=== PATIENT | male | born 1965 | race Caucasian/White ===

== ENCOUNTER 2020-07-07 17:11 | Inpatient (IN) | payer BC, OTHER ==
[2020-07-07] MEDS ORDERED: Ondansetron PF 4 MG/2 ML Vial IVP PRN (17:12)
[2020-07-07] MEDS ORDERED: Acetaminophen 325 MG TAB PO PRN (17:12)
[2020-07-07] MEDS ORDERED: Nitroglycerin 0.4 MG TAB (25 Tab Bottle) SL PRN (17:12)
[2020-07-07 17:27] VITALS: BMI 45.9
[2020-07-07 18:04] LABS: #Eosinphils 0.1 10x3/uL (0.0-0.5); #Monocytes 0.8 10x3/uL (0.0-1.1); #Neutrophils 5.7 10x3/uL (1.5-8.4); %Basophils 0.3 % (0.0-2.0); %Eosinophils 0.9 % (0.0-6.0); %Lymphocytes 22.4 % (18.0-47.0); %Monocytes 9.3 % (0.0-10.0); %Neutrophils 66.4 % (40.0-75.0); Hemoglobin 14.5 g/dL (13.5-17.5); Mean Corpuscular HGB CONC 33.4 g/dL (32.0-36.0); Mean Corpuscular Hemoglobin 29.5 pg (27.0-33.0); Mean Corpuscular Volume 88.4 fl (81.2-95.1); Mean Platelet Volume 9.4 fl (7.4-10.4); Platelet Count 242 10x3/uL (150-450); RBC Distribution Width 12.7 % (11.5-14.5); Red Blood Cell (RBC) Count 4.91 10x6/uL (4.32-5.72); White Blood Cell (WBC) Count 8.6 10x3/uL (3.5-10.5)
[2020-07-07 18:15] LABS: Anion Gap 15 mmol/L (10-20); BUN (Urea Nitrogen) 12 mg/dL (8.4-25.7); Calc. Creatinine Clearance 180 mL/min (70-130); Calcium 9.4 mg/dL (7.8-10.44); Carbon Dioxide 22 mmol/L (22-29); Chloride 105 mmol/L (98-107); Glucose 94 mg/dL (70-105); Potassium 3.8 mmol/L (3.5-5.1); Sodium 138 mmol/L (136-145)
[2020-07-07 18:37] LABS: Troponin I 2.754 ng/mL (< 0.028)
[2020-07-07] MEDS: Famotidine 20 MG TAB PO SCH (20:48)
[2020-07-07] MEDS: Enoxaparin Sodium 80 MG/0.8 ML SYRINGE SC SCH ×2 (20:48)
[2020-07-07] MEDS: Montelukast Sodium 10 mg Tablet PO SCH (20:48)
[2020-07-07] MEDS: Cyclobenzaprine 10 MG TAB PO SCH (20:48)
[2020-07-07] MEDS: Nitroglycerin 2% Ointment 1 INCH/1 GM Packet TOP SCH (20:49)
[2020-07-07] MEDS: Pregabalin 75 MG CAP PO SCH (20:49)
[2020-07-07] MEDS: Atorvastatin Calcium 40 MG TAB PO SCH (20:49)
[2020-07-07 20:56] LABS: Troponin I 3.099 ng/mL (< 0.028)
[2020-07-08 06:12] LABS: #Eosinphils 0.1 10x3/uL (0.0-0.5); #Monocytes 0.9 10x3/uL (0.0-1.1); #Neutrophils 4.3 10x3/uL (1.5-8.4); %Basophils 0.3 % (0.0-2.0); %Eosinophils 1.4 % (0.0-6.0); %Lymphocytes 25.8 % (18.0-47.0); %Monocytes 12.7 % (0.0-10.0); %Neutrophils 59.5 % (40.0-75.0); Hemoglobin 13.9 g/dL (13.5-17.5); Mean Corpuscular HGB CONC 32.4 g/dL (32.0-36.0); Mean Corpuscular Hemoglobin 28.9 pg (27.0-33.0); Mean Corpuscular Volume 89.2 fl (81.2-95.1); Mean Platelet Volume 9.5 fl (7.4-10.4); Platelet Count 249 10x3/uL (150-450); Red Blood Cell (RBC) Count 4.81 10x6/uL (4.32-5.72); White Blood Cell (WBC) Count 7.3 10x3/uL (3.5-10.5)
[2020-07-08] MEDS: Nitroglycerin 2% Ointment 1 INCH/1 GM Packet TOP SCH ×2 (06:22→15:58)
[2020-07-08 06:23] LABS: Anion Gap 13 mmol/L (10-20); BUN (Urea Nitrogen) 12 mg/dL (8.4-25.7); Calc. Creatinine Clearance 160 mL/min (70-130); Calcium 9.2 mg/dL (7.8-10.44); Carbon Dioxide 28 mmol/L (22-29); Cardiac Risk 3.7 (Less than 4.5); Chloride 105 mmol/L (98-107); Cholesterol 115 mg/dl (< 200 Desired); Glucose 100 mg/dL (70-105); HDL Cholesterol 31 mg/dL (>60 Neg Risk); LDL Cholesterol, Calculated 61 mg/dL; Potassium 4.3 mmol/L (3.5-5.1); Sodium 142 mmol/L (136-145); Triglycerides 114 mg/dL (Less than 150)
[2020-07-08] MEDS: Cyclobenzaprine 10 MG TAB PO SCH ×2 (09:40→20:08)
[2020-07-08] MEDS: Famotidine 20 MG TAB PO SCH ×2 (09:40→20:08)
[2020-07-08] MEDS: Fish Oil 1,000 MG CAP PO SCH (09:41)
[2020-07-08] MEDS: Multivit, Therapeutic 1 TAB PO SCH (09:41)
[2020-07-08] MEDS: Fluticasone Propionate Nasal Spray 16 gm Bottle NASAL SCH (09:41)
[2020-07-08] MEDS: Aspirin 81 mg Enteric Coated Tablet PO SCH (09:41)
[2020-07-08] MEDS: Pregabalin 75 MG CAP PO SCH ×3 (09:41→20:07)
[2020-07-08 10:56] LABS: CKMB 22.3 ng/mL (0-6.6)
[2020-07-08 11:14] LABS: Hemoglobin A1c 5.8 % (4.0-6.0)
[2020-07-08] MEDS: Enoxaparin Sodium 80 MG/0.8 ML SYRINGE SC SCH ×5 (12:20→20:09)
[2020-07-08 14:08] LABS: SARS-CoV-2 PCR by NAA Not Detected (NotDetected)
[2020-07-08] MEDS: Atorvastatin Calcium 40 MG TAB PO SCH (20:08)
[2020-07-08] MEDS: Montelukast Sodium 10 mg Tablet PO SCH (20:09)
[2020-07-09] MEDS: Nitroglycerin 2% Ointment 1 INCH/1 GM Packet TOP SCH ×3 (01:52→15:52)
[2020-07-09 05:16] LABS: #Eosinphils 0.1 10x3/uL (0.0-0.5); #Monocytes 0.8 10x3/uL (0.0-1.1); #Neutrophils 3.2 10x3/uL (1.5-8.4); %Basophils 0.3 % (0.0-2.0); %Eosinophils 1.6 % (0.0-6.0); %Lymphocytes 31.3 % (18.0-47.0); %Monocytes 13.4 % (0.0-10.0); %Neutrophils 53.2 % (40.0-75.0); Mean Corpuscular HGB CONC 32.2 g/dL (32.0-36.0); Mean Corpuscular Hemoglobin 29.2 pg (27.0-33.0); Mean Corpuscular Volume 90.8 fl (81.2-95.1); Mean Platelet Volume 9.4 fl (7.4-10.4); Platelet Count 234 10x3/uL (150-450); RBC Distribution Width 12.7 % (11.5-14.5); Red Blood Cell (RBC) Count 4.79 10x6/uL (4.32-5.72); White Blood Cell (WBC) Count 6.1 10x3/uL (3.5-10.5)
[2020-07-09 05:30] LABS: Anion Gap 13 mmol/L (10-20); BUN (Urea Nitrogen) 15 mg/dL (8.4-25.7); Calc. Creatinine Clearance 161 mL/min (70-130); Calcium 8.9 mg/dL (7.8-10.44); Carbon Dioxide 27 mmol/L (22-29); Chloride 104 mmol/L (98-107); Glucose 100 mg/dL (70-105); Potassium 4.1 mmol/L (3.5-5.1); Sodium 140 mmol/L (136-145)
[2020-07-09] MEDS: Famotidine 20 MG TAB PO SCH (06:03)
[2020-07-09] MEDS: Aspirin 81 mg Enteric Coated Tablet PO SCH (06:03)
[2020-07-09] MEDS: Pregabalin 75 MG CAP PO SCH ×2 (06:03→15:45)
[2020-07-09] MEDS ORDERED: Lidocaine 1% (PF) 30 ML VIAL ONE (07:06)
[2020-07-09] MEDS ORDERED: Nitroglycerin 50 MG/250 ML BOT 250 ML ONE (07:06)
[2020-07-09] MEDS ORDERED: Adenosine 6 MG/2 ML VIAL ONE (07:07)
[2020-07-09] MEDS ORDERED: Bivalirudin 250 MG VIAL ONE ×2 (07:07→07:20)
[2020-07-09] MEDS ORDERED: Heparin 10,000 UNITS/ 10 ML VIAL ONE (07:07)
[2020-07-09] MEDS ORDERED: Verapamil 5 MG/2 ML VIAL ONE (07:08)
[2020-07-09] MEDS: Enoxaparin Sodium 80 MG/0.8 ML SYRINGE SC SCH ×2 (07:28→07:29)
[2020-07-09] MEDS ORDERED: Midazolam HCl 2 mg/2 ml Vial ONE ×2 (07:50→08:17)
[2020-07-09] MEDS ORDERED: Fentanyl 100 MCG/2 ML VIAL ONE (07:50)
[2020-07-09] MEDS ORDERED: TICAGRELOR 90 MG TABLET ONE (08:29)
[2020-07-09] MEDS ORDERED: Sodium Chloride 0.9% 1,000 ML IV SCH (09:45)
[2020-07-09] MEDS: Multivit, Therapeutic 1 TAB PO SCH (10:40)
[2020-07-09] MEDS: Fluticasone Propionate Nasal Spray 16 gm Bottle NASAL SCH (10:40)
[2020-07-09] MEDS: Cyclobenzaprine 10 MG TAB PO SCH (10:40)
[2020-07-09] MEDS: Fish Oil 1,000 MG CAP PO SCH (10:40)
[2020-07-09 16:15] VITALS: BP 139/75; TEMP 98.4
[2020-07-09] MEDS ORDERED: TICAGRELOR 90 MG TABLET PO SCH (21:00)
== END 2020-07-09 17:20 | disposition home or self-care (01) | DRG 247 ==
LOC: INTOOBSV 17:11 → CSHTELE 17:11 → OBSVTOIN 07-08 11:38 → CSHTELE 07-09 05:18
PROVIDERS: ADMIT Family Medicine; ATTEND Family Medicine
PROC: 4A023N7 Measurement of Cardiac Sampling and Pressure, Left Heart, Percutaneous Approach (ICD-10-PCS; principal; 2020-07-09)
PROC: 027034Z Dilation of Coronary Artery, One Artery with Drug-eluting Intraluminal Device, Percutaneous Approach (ICD-10-PCS; 2020-07-09)
PROC: B2111ZZ Fluoroscopy of Multiple Coronary Arteries using Low Osmolar Contrast (ICD-10-PCS; 2020-07-09)
DX: I21.4 Non-ST elevation (NSTEMI) myocardial infarction (principal); K51.90 Ulcerative colitis, unspecified, without complications; Z68.42 Body mass index [BMI] 45.0-49.9, adult; I25.10 Atherosclerotic heart disease of native coronary artery without angina pectoris; E78.5 Hyperlipidemia, unspecified; Z88.2 Allergy status to sulfonamides; I10 Essential (primary) hypertension; Z86.16 Personal history of COVID-19; E66.01 Morbid (severe) obesity due to excess calories; F17.290 Nicotine dependence, other tobacco product, uncomplicated; Z20.822 Contact with and (suspected) exposure to COVID-19
CPT/HCPCS: 36415; 36416; 80048; 80061; 82553; 83036; 84484; 85025; 87635; 92928; 93005; 93010; 93306; 93458; 96372; 99152; 99153; C1874; C1887; C9600; G0378; J0153; J0583; J1644; J1650; J2001; J2250; J3010; U0003; U0005